=== PATIENT | female | born 1990 | race Caucasian/White ===

== ENCOUNTER 2016-10-08 13:50 | Inpatient (IN) | payer BC, OTHER ==
[~2016-10-08] VITALS: Ht 170.2 cm; Wt 71.3 kg
[~2016-10-08 13:50] MED LIST: ANUSOL HC30 GM R; ATARAX,VISTARIL50 MG PO; CARBIDOPA/LEVOD1 TA1 PO; MIRALAX17 GM PO; NEURONTIN300 MG PO; PAROXETINE10 MG PO; PEPCID20 MG PO; PROAIR HFA8.5 GM INH; SEPTRA DS 800 M1 TAB PO; SPIRIVA RESPIMAT4 G1 INH; SYMBICORT1 AE1 INH; ZOFRAN 4 MG ED2 TAB PO
[2016-10-08 14:15] VITALS: BP 120/77
[2016-10-08 14:51] LABS: BASO % 0.4 % (0.0-1.0); EOS # 0.2 10*3/uL (0.0-0.4); EOS % 2.6 % (1.0-4.0); HEMATOCRIT 40.8 % (37.0-47.0); HEMOGLOBIN 13.5 g/dl (12.0-16.0); LYMPH # 2.8 10*3/uL (1.3-4.4); LYMPH % 33.2 % (27.0-41.0); MEAN CELL VOLUME 94.2 fl (81.0-99.0); MEAN CORPUSCULAR HGB 31.2 pg (27.0-31.0); MEAN CORPUSCULAR HGB CONC 33.1 g/dl (33.0-37.0); MEAN PLATELET VOLUME 8.7 fl (9.6-12.3); MONO # 0.6 10*3/uL (0.1-1.0); MONO % 7.1 % (3.0-9.0); NEUT # 4.8 10*3/uL (2.3-7.9); NEUT % 56.5 % (47.0-73.0); PLATELET COUNT AUTOMATED 256 10*3/uL (130-400); RED BLOOD COUNT 4.33 10*6/uL (4.10-5.10); RED CELL DISTRI WIDTH 13.9 % (0-14.5); WHITE BLOOD COUNT 8.4 10*3/uL (4.8-10.8)
[2016-10-08 15:07] LABS: ALBUMIN 3.7 gm/dl (3.1-4.5); ALKALINE PHOSPHATASE 123 U/L (45-117); BILIRUBIN, TOTAL 0.5 mg/dl (0.2-1.0); BUN 7 mg/dl (7-24); CARBON DIOXIDE 27 mmol/L (21-32); CHLORIDE 102 mmol/L (98-107); EST GLOM FILT AFRICAN AMERICAN > 60 ml/min; GLUCOSE 87 mg/dL (65-99); POTASSIUM 3.6 mmol/L (3.5-5.1); SGOT/AST 89 IU/L (3-35); SGPT/ALT 126 U/L (12-78); SODIUM 138 mmol/L (136-145); TOTAL PROTEIN 7.9 gm/dL (6.4-8.2)
[2016-10-08 15:16] VITALS: BP 120/77
[2016-10-08 15:58] LABS: BILIRUBIN NEGATIVE (NEGATIVE); BLOOD NEGATIVE (NEGATIVE); CLARITY CLOUDY (CLEAR); COLOR YELLOW (YELLOW); GLUCOSE NEGATIVE (NEGATIVE); KETONE TRACE (NEGATIVE); LEUKO ESTERASE NEGATIVE (NEGATIVE); NITRITE NEGATIVE (NEGATIVE); PH 7.5 (5.0-9.0); PROTEIN TRACE (NEGATIVE); SPECIFIC GRAVITY 1.015 (1.005-1.030); UROBILINOGEN >= 8.0 E.U./dl (0.2-1.0)
[2016-10-08] MEDS ORDERED: TOPAMAX200 MG PO (15:58)
[2016-10-08] MEDS ORDERED: TRAZODONE100 MG PO (15:59)
[2016-10-08] MEDS ORDERED: CHLORPROMAZINE50 M1 PO (15:59)
[2016-10-08 16:00] VITALS: BP 114/74
[2016-10-08] MEDS ORDERED: MINIPRESS2 M2 PO (16:00)
[2016-10-08] MEDS ORDERED: MINIPRESS5 MG PO (16:00)
[2016-10-08] MEDS ORDERED: RISPERDAL1 M1 PO (16:01)
[2016-10-08] MEDS ORDERED: REQUIP0.5 MG PO (16:01)
[2016-10-08] MEDS ORDERED: BUSPIRONE10 MG PO (16:02)
[2016-10-08] MEDS ORDERED: CITALOPRAM40 MG PO (16:02)
[2016-10-08 16:05] LABS: URINE AMPHETAMINES < 1000 (1000ng/ml); URINE BARBITURATES < 200 (200ng/ml); URINE COCAINE < 300 (300ng/ml)
[2016-10-08 16:06] LABS: BACTERIA 4+; URINE REFLEX COMMENT YES (NO)
[2016-10-08 20:00] VITALS: BP 100/58
[2016-10-09] VITALS: BP 97/57
[2016-10-09 04:00] VITALS: BP 89/50; BP 98/52
[2016-10-09 08:00] VITALS: BP 96/50
[2016-10-09 12:00] VITALS: BP 100/57
[2016-10-09 16:00] VITALS: BP 108/63
[2016-10-09] MEDS ORDERED: TOPAMAX200 MG PO (16:19)
[2016-10-09] MEDS ORDERED: CHLORPROMAZINE50 M1 PO (16:23)
[2016-10-09] MEDS ORDERED: SPIRIVA RESPIMAT4 G1 IH (16:24)
[2016-10-09] MEDS ORDERED: TRAZODONE100 MG PO (16:25)
[2016-10-09] MEDS ORDERED: MINIPRESS5 MG PO (16:28)
[2016-10-09] MEDS ORDERED: MINIPRESS2 M2 PO (16:29)
[2016-10-09] MEDS ORDERED: ROPINIROLE HYDRO1 MG PO (16:30)
[2016-10-09] MEDS ORDERED: RISPERDAL1 M1 PO (16:31)
[2016-10-09] MEDS ORDERED: PEPCID20 MG PO (16:31)
[2016-10-09] MEDS ORDERED: BUSPAR5 MG PO (16:32)
[2016-10-09 20:00] VITALS: BP 107/65
[2016-10-10] VITALS: BP 91/54
[2016-10-10 08:00] VITALS: BP 102/70
[2016-10-10 16:00] VITALS: BP 100/60
[2016-10-11] VITALS: BP 96/60
[2016-10-11 04:00] VITALS: BP 96/68
[2016-10-11 06:16] LABS: BASO % 0.5 % (0.0-1.0); EOS # 0.3 10*3/uL (0.0-0.4); EOS % 4.3 % (1.0-4.0); HEMATOCRIT 36.1 % (37.0-47.0); HEMOGLOBIN 11.6 g/dl (12.0-16.0); LYMPH # 3.5 10*3/uL (1.3-4.4); LYMPH % 54.8 % (27.0-41.0); MEAN CELL VOLUME 95.5 fl (81.0-99.0); MEAN CORPUSCULAR HGB 30.7 pg (27.0-31.0); MEAN CORPUSCULAR HGB CONC 32.1 g/dl (33.0-37.0); MEAN PLATELET VOLUME 8.6 fl (9.6-12.3); MONO # 0.4 10*3/uL (0.1-1.0); MONO % 5.5 % (3.0-9.0); NEUT # 2.2 10*3/uL (2.3-7.9); NEUT % 34.7 % (47.0-73.0); PLATELET COUNT AUTOMATED 222 10*3/uL (130-400); RED BLOOD COUNT 3.78 10*6/uL (4.10-5.10); RED CELL DISTRI WIDTH 13.5 % (0-14.5); WHITE BLOOD COUNT 6.4 10*3/uL (4.8-10.8)
[2016-10-11 06:50] LABS: ALBUMIN 2.8 gm/dl (3.1-4.5); ALKALINE PHOSPHATASE 91 U/L (45-117); BILIRUBIN, TOTAL 0.3 mg/dl (0.2-1.0); BUN 12 mg/dl (7-24); CARBON DIOXIDE 24 mmol/L (21-32); CHLORIDE 107 mmol/L (98-107); EST GLOM FILT AFRICAN AMERICAN > 60 ml/min; GLUCOSE 86 mg/dL (65-99); SGOT/AST 49 IU/L (3-35); SGPT/ALT 20 U/L (12-78); SODIUM 142 mmol/L (136-145); TOTAL PROTEIN 6.1 gm/dL (6.4-8.2)
[2016-10-11 08:00] VITALS: BP 104/64
[2016-10-11 12:00] VITALS: BP 104/57
[2016-10-11] MEDS ORDERED: TRAZODONE50 MG PO (14:22)
[2016-10-11] MEDS ORDERED: NATURE'S BLEND F1 MG PO (14:22)
[2016-10-11] MEDS ORDERED: METHOCARBAMOL750 M1 PO (14:22)
[2016-10-11] MEDS ORDERED: VITAMIN B-11 TAB PO (14:22)
[2016-10-11] MEDS ORDERED: ATARAX,VISTARIL50 MG PO (14:22)
[2016-10-11] MEDS ORDERED: KROGER NIC21 MG/24 H T (14:22)
[2016-10-11] MEDS ORDERED: THERA TABS1 TAB PO (14:22)
[2016-10-11] MEDS ORDERED: CARBIDOPA/LEVOD1 TA1 PO (14:22)
== END 2016-10-11 14:36 | disposition home or self-care (01) | DRG 897 ==
LOC: 5E 13:50
PROVIDERS: Family Medicine Adult Medicine; Internal Medicine
DX: F11.23 Opioid dependence with withdrawal (principal); F31.81 Bipolar II disorder; F17.210 Nicotine dependence, cigarettes, uncomplicated; K21.9 Gastro-esophageal reflux disease without esophagitis; J45.909 Unspecified asthma, uncomplicated; K58.9 Irritable bowel syndrome, unspecified; B19.20 Unspecified viral hepatitis C without hepatic coma; F41.1 Generalized anxiety disorder; G25.81 Restless legs syndrome; Z90.49 Acquired absence of other specified parts of digestive tract; Z98.890 Other specified postprocedural states; Z81.8 Family history of other mental and behavioral disorders; Z82.49 Family history of ischemic heart disease and other diseases of the circulatory system; Z71.6 Tobacco abuse counseling